=== PATIENT | male | born 1940 | race Caucasian/White ===

== ENCOUNTER 2020-04-20 07:34 | Outpatient (CLI) | payer MEDICARE ==
--- NOTE | 2020-04-20 09:48 | CT ---
CT ABDOMEN AND PELVIS WITH ORAL AND IV CONTRAST: HISTORY: Chronic lymphocytic leukemia of B-cell type not having achieved remission. COMPARISON: None. FINDINGS: The lung bases are unremarkable. The spleen is enlarged measuring 16.5 cm in length. The liver, finley creas, and left adrenal gland are normal. No calcified gallstones are seen. There is an indeterminate 13 mm right adrenal nodule and bilateral renal cysts. No free air or free fluid is seen in the abdomen or pelvis. There are enlarged lymph nodes measuring up to 2.5 cm in the portocaval region, 1 cm in the retroperitoneum and 1 cm in the right iliac regio n. There are vascular calcifications without evidence of aneurysmal dilatation of the abdominal aorta. Multilevel degenerative changes are present in the spine. There are small sclerotic foci in the pelv ic bones and proximal femurs. These may be due to small bone islands or osseous metastatic disease. IMPRESSION: 1. Splenomegaly. 2. Lymphadenopathy. 3. Bilateral renal cysts. 4. Small sclerotic foci in the bones as discussed above. 5. Indeterminate right adrenal nodule. Dedicated CT scan of the abdomen using adrenal protocol wojoe d be helpful. POS: OFF
[2020-04-20] MEDS ORDERED: Iopamidol 370 76% 100 ML VIAL ONE (15:36)
== END 2020-04-20 07:35 | disposition home or self-care (01) ==
LOC: BICCT 07:34
PROVIDERS: ATTEND Internal Medicine Hematology & Oncology
DX: C91.10 Chronic lymphocytic leukemia of B-cell type not having achieved remission (principal); N28.1 Cyst of kidney, acquired; R16.1 Splenomegaly, not elsewhere classified; R59.1 Generalized enlarged lymph nodes; M89.8X8 Other specified disorders of bone, other site; E27.8 Other specified disorders of adrenal gland
CPT/HCPCS: 74177; 82565; Q9967

== ENCOUNTER 2020-11-12 13:31 | Emergency (ER) | payer MEDICARE | END 2020-11-12 14:13 | disposition home or self-care (01) | LOC: ERS 13:31 | DX: K40.90 Unilateral inguinal hernia, without obstruction or gangrene, not specified as recurrent (principal); E78.5 Hyperlipidemia, unspecified; I10 Essential (primary) hypertension; Z79.82 Long term (current) use of aspirin; Z79.899 Other long term (current) drug therapy | CPT/HCPCS: 99283 ==

== ENCOUNTER 2020-12-10 13:06 | Outpatient (CLI) | payer MEDICARE ==
[2020-12-10 13:57] LABS: Anion Gap 9 mmol/L (10-20); BUN (Urea Nitrogen) 16 mg/dL (8.4-25.7); Calc. Creatinine Clearance 0 mL/min (70-130); Calcium 8.9 mg/dL (7.8-10.44); Carbon Dioxide 26 mmol/L (23-31); Chloride 106 mmol/L (98-107); Glucose 89 mg/dL (83-110); Potassium 4.2 mmol/L (3.5-5.1); Sodium 137 mmol/L (136-145)
[2020-12-10 14:11] LABS: Hemoglobin 14.4 g/dL (13.5-17.5); Mean Corpuscular HGB CONC 33.8 g/dL (32.0-36.0); Mean Corpuscular Hemoglobin 31.2 pg (27.0-33.0); Mean Corpuscular Volume 92.2 fl (81.2-95.1); Mean Platelet Volume 13.3 fl (7.4-10.4); Platelet Count 148 10x3/uL (150-450); RBC Distribution Width 13.9 % (11.5-14.5); Red Blood Cell (RBC) Count 4.62 10x6/uL (4.32-5.72); White Blood Cell (WBC) Count 11.1 10x3/uL (3.5-10.5)
[2020-12-10 14:50] LABS: MDiff Complete? YES
[2020-12-10 14:56] LABS: Band 1 % (5-11); Eosinophils 4 % (0-10); Lymphocytes 44 % (21-51); Monocytes 4 % (0-10); Neutrophil 38 % (42-75); Reactive Lymphocytes 9 % (0-10)
[2020-12-10 15:10] LABS: Platelet Morphology Comment Appears Adequate
[2020-12-10 23:52] LABS: SARS-CoV-2 PCR by NAA Not Detected (NotDetected)
== END 2020-12-10 13:07 | disposition home or self-care (01) ==
LOC: LABBT 13:06
PROVIDERS: ATTEND Specialist
DX: Z01.812 Encounter for preprocedural laboratory examination (principal); K40.90 Unilateral inguinal hernia, without obstruction or gangrene, not specified as recurrent; Z20.822 Contact with and (suspected) exposure to COVID-19
CPT/HCPCS: 80048; 85025; U0003; U0005; 87635

== ENCOUNTER 2020-12-15 06:06 | Day surgery (SDC) | payer MEDICARE ==
[2020-12-14 10:55] VITALS: BMI 26.2
[2020-12-15] MEDS ORDERED: Fentanyl 100 MCG/2 ML VIAL ONE (06:23)
[2020-12-15] MEDS ORDERED: Acetaminophen 500 MG TAB ONE (06:48)
[2020-12-15] MEDS ORDERED: Ketorolac Tromethamine 30 MG/ML VIAL ONE (06:48)
[2020-12-15] MEDS ORDERED: Bupivacaine 0.25% HCL 30 ML VIAL ONE (06:50)
[2020-12-15] MEDS ORDERED: XYLOCAINE 2%-EPI 1:100,000 20 ML VIAL ONE (06:50)
[2020-12-15] MEDS ORDERED: Rocuronium Bromide 10 MG/ML (10ML VIAL) ONE (07:37)
[2020-12-15] MEDS ORDERED: Lidocaine 1% PF 5 ML VIAL ONE (07:37)
[2020-12-15] MEDS ORDERED: Ondansetron PF 4 MG/2 ML Vial ONE (07:37)
[2020-12-15] MEDS ORDERED: ePHEDrine 50 MG/ML VIAL ONE (07:37)
[2020-12-15] MEDS ORDERED: Glycopyrrolate 0.2 MG/ML 5 ML SYRINGE ONE (07:37)
[2020-12-15] MEDS ORDERED: PROPOFOL 200 MG/20 ML VIAL ONE (07:37)
== END 2020-12-15 10:47 | disposition home or self-care (01) ==
LOC: SDC 06:06
PROVIDERS: ATTEND Specialist
PROC: 0YU64JZ Supplement Left Inguinal Region with Synthetic Substitute, Percutaneous Endoscopic Approach (ICD-10-PCS; principal; 2020-12-15)
DX: K40.90 Unilateral inguinal hernia, without obstruction or gangrene, not specified as recurrent (principal); I10 Essential (primary) hypertension; C91.10 Chronic lymphocytic leukemia of B-cell type not having achieved remission; Z87.891 Personal history of nicotine dependence; Z79.82 Long term (current) use of aspirin; Z79.899 Other long term (current) drug therapy; Z95.1 Presence of aortocoronary bypass graft
CPT/HCPCS: 49650; C1781; J0690; J1885; J2405; J2704; J3010; J3490; S0020

== ENCOUNTER 2022-05-01 14:08 | Outpatient (CLI) | payer MEDICARE, OTHER | END 2022-05-01 14:09 | disposition home or self-care (01) | LOC: BICRAD 14:08 | PROVIDERS: ATTEND Family Medicine | DX: R07.81 Pleurodynia (principal) | CPT/HCPCS: 71046 ==

== ENCOUNTER 2024-10-07 09:23 | Outpatient (CLI) | payer MEDICARE | END 2024-10-07 09:24 | disposition home or self-care (01) | LOC: BICCT 09:23 | PROVIDERS: ATTEND Internal Medicine | DX: R63.4 Abnormal weight loss (principal); R91.8 Other nonspecific abnormal finding of lung field; N28.1 Cyst of kidney, acquired; J98.4 Other disorders of lung; K76.89 Other specified diseases of liver | CPT/HCPCS: 74177 ==

== ENCOUNTER 2025-05-25 20:05 | Emergency (ER) | payer MEDICARE ==
[2025-05-25] MEDS ORDERED: Acetaminophen 500 MG TAB ONE (21:31)
[2025-05-25 21:34] LABS: #Basophils 0.08 10x3/uL (0.0-0.2); #Eosinophils Less than 0.03 10x3/uL (0.0-0.7); #Monocytes 0.59 10x3/uL (0.11-0.59); #Neutrophils 7.70 10x3/uL (1.40-6.50); %Basophils 0.9 % (0.0-1.0); %Eosinophils 0.2 % (0.0-10.0); %Lymphocytes 7.0 % (21.0-51.0); %Monocytes 6.5 % (0.0-10.0); %Neutrophils 85.2 % (42.0-75.0); Hematocrit 42.8 % (42.0-52.0); Hemoglobin 14.2 g/dL (14.0-18.0); Mean Corpuscular Hemoglobin 30.0 pg (27.0-31.0); Mean Corpuscular Volume 90.3 fL (78.0-98.0); Platelet Count 104 10x3/uL (130-400); Red Blood Cell (RBC) Count 4.74 mill/uL (4.70-6.10); White Blood Cell (WBC) Count 9.04 10x3/uL (4.8-10.8)
[2025-05-25 21:54] LABS: ALT (SGPT) 15 U/L (Less than 45); AST (SGOT) 28 U/L (11-34); Albumin 4.3 g/dL (3.1-4.5); Alkaline Phosphatase 52 U/L (40-110); Anion Gap 14 mmol/L (10-20); BUN (Urea Nitrogen) 25 mg/dL (8.4-25.7); Bilirubin, Total 0.8 mg/dL (0.3-1.2); Calc. Creatinine Clearance 0 mL/min (70-130); Calcium 9.0 mg/dL (7.8-10.44); Carbon Dioxide 20 mmol/L (23-31); Chloride 108 mmol/L (98-107); Globulin 2.3 g/dL (2.4-3.5); Glucose 88 mg/dL (83-110); Potassium 4.3 mmol/L (3.5-5.1); Sodium 138 mmol/L (136-145)
== END 2025-05-25 23:10 | disposition home or self-care (01) ==
LOC: ERS 20:05
DX: U07.1 COVID-19 (principal); E86.0 Dehydration; I10 Essential (primary) hypertension; Z55.6 Problems related to health literacy
CPT/HCPCS: 36415; 71046; 80053; 83605; 84484; 85025; 87040; 87428; 93005; 96360